=== PATIENT | female | born 1975 | race Caucasian/White ===

== ENCOUNTER → 2018-01-19 | Outpatient (CLI) | payer OTHER ==
[~2018-01-19] VITALS: Ht 162.6 cm; Wt 58.5 kg
[~2018-01-19] MED LIST: ACETAMINOPHEN-1 EAC1 PO; CYMBALTA60 MG PO; GRALISE600 MG PO; MOBIC15 MG PO; NORTRIPTYLINE H10 M1 PO; PERCOCET 7.5-31 EACH PO; PREDNISONE 20 M20 MG PO
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
[2018-01-19 14:33] VITALS: BP 103/69
== END | disposition home or self-care (01) ==
LOC: PAIN 12:47
DX: M54.16 Radiculopathy, lumbar region (principal); Z91.041 Radiographic dye allergy status; Z98.890 Other specified postprocedural states; Z79.891 Long term (current) use of opiate analgesic; Z87.891 Personal history of nicotine dependence; Z88.8 Allergy status to other drugs, medicaments and biological substances; Z79.899 Other long term (current) drug therapy; Z96.652 Presence of left artificial knee joint

== ENCOUNTER → 2018-06-01 | Outpatient (CLI) | payer OTHER ==
[~2018-06-01] VITALS: Ht 162.6 cm; Wt 60.0 kg
--- NOTE | ~2018-06-01 | HPC ---
[address] [place] [address] PAIN MANAGEMENT CONSULTATION Name: DANA ONOFRE Room #: REG [facility].#: [id number] Admission: 06/01/18 Attend Phys: Jah Lovelace MD Discharge: Date of : 73 Report #: [id number] THIS REPORT FOR: //name// CC: Dk Sotelo MD Physician staff Jah Lovelace DATE OF SERVICE: 06/01/2018 REASON FOR VISIT: Followup visit for lumbar radiculopathy in the L3-L4 distribution. HISTORY OF PRESENT ILLNESS: The patient returns to the pain clinic today for a bilateral transforaminal epidural injection. Her favorable response to her initial injection was performed in January and it has been noted in her visit last week. We sought preauthorization for the bilateral injections today and have received it. We will go forward with the injection today under fluoroscopic guidance. IMPRESSION: Bilateral lumbar radiculopathy. Left lateral disk protrusion at L2-L3 causing lateral recess stenosis and the left posterior disk bulge at L3-L4 causing lateral recess stenosis. PROCEDURE: Epidural steroid injection under fluoroscopic guidance, transforaminal approach, bilateral. DESCRIPTION OF PROCEDURE: She was taken to fluoroscopic suite, placed prone, skin prepped with ChloraPrep and skin anesthetized first on the left. A 22-gauge Tuohy epidural needle was gently advanced into the neural foramen at L3-L4. There was no blood and no CSF aspirated. Due to severe allergy to IODINE, we have once again elected not to inject iodine prior to injecting our local anesthetic, triamcinolone mixture. She had some discomfort during needle placement. I carefully repositioned the needle so that there was no paresthesia or discomfort. I gently injected 1 mL of 1% lidocaine followed by 3 mL of 1% lidocaine and 40 mg of triamcinolone. She tolerated the procedure on the left with some discomfort . We then moved to the right. I anesthetized the skin with 1% lidocaine. She did note that she was very hyperalgesic and even a small amount of local anesthetic injected in the skin caused a quite a bit of reaction from her. I injected below the skin with subcutaneous injection of 1% lidocaine and we waited at least 90 seconds before proceeding with a placement of the second Tuohy epidural needle at L3-L4. Needle was advanced into the neural foramen with less discomfort. AP and lateral views confirmed good placement within the neural foramen and I gently injected another 3 mL of 1% [facility] [address] [place] [address] PAIN MANAGEMENT CONSULTATION Name: DANA ONOFRE Room #: REG [facility]#: [id number] Admission: 06/01/18 Attend Phys: Jah Lovelace MD Discharge: Date of : 73 Report #: [id number] lidocaine mixed with 40 mg of triamcinolone. She tolerated the procedure well and was taken to the Recovery Room. Because of the additional 1% lidocaine that was injected during the procedure, her legs were a little bit heavy towards the end and she was kept for nearly an hour and discharged with her . She will be cautious in her movements until local anesthetic is fully resolved. A followup visit planned as needed. No medications were ordered. By: [id number] Jah Lovelace MD /nt
[2018-06-01 14:57] VITALS: BP 105/63
== END | disposition home or self-care (01) ==
LOC: PAIN 07:32
DX: M51.16 Intervertebral disc disorders with radiculopathy, lumbar region (principal); M48.061 Spinal stenosis, lumbar region without neurogenic claudication; Z87.891 Personal history of nicotine dependence; Z98.890 Other specified postprocedural states; Z91.041 Radiographic dye allergy status; Z88.8 Allergy status to other drugs, medicaments and biological substances; Z79.899 Other long term (current) drug therapy

== ENCOUNTER → 2018-09-08 | Outpatient (CLI) | payer OTHER ==
[~2018-09-08] VITALS: Ht 162.6 cm; Wt 63.4 kg
[~2018-09-08] MED LIST changes: +NORCO 5-325 TA1 EACH PO
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
[2018-09-08 13:04] VITALS: BP 125/75
== END ==
LOC: PAIN 08:36
DX: M54.5 Low back pain (principal); M79.652 Pain in left thigh; Z72.89 Other problems related to lifestyle; Z87.891 Personal history of nicotine dependence

== ENCOUNTER → 2018-09-15 | Outpatient (CLI) | payer OTHER ==
[~2018-09-15] VITALS: Ht 162.6 cm; Wt 63.3 kg
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
[2018-09-15 08:41] VITALS: BP 114/75
== END | disposition home or self-care (01) ==
LOC: PAIN 05:40
DX: M54.16 Radiculopathy, lumbar region (principal); G89.29 Other chronic pain; Z98.890 Other specified postprocedural states; Z91.041 Radiographic dye allergy status; Z79.899 Other long term (current) drug therapy; Z87.891 Personal history of nicotine dependence

== ENCOUNTER → 2020-07-03 | Outpatient (CLI) | payer OTHER ==
[~2020-07-03] VITALS: Ht 162.6 cm; Wt 68.0 kg
[~2020-07-03] MED LIST changes: +DIAZEPAM 5 MG5 M1 PO
[2020-07-03 09:21] VITALS: BP 109/74
--- NOTE | 2020-07-03 09:37 | NUR ---
Pain Clinic Assessment: 1. History of Osteoarthritis: Left Lower Extremity History of Rheumatoid Arthritis: Not Applicable 2. Height: 5 ft. 4 in. 162.6 cm. Weight: 150.0 lb. oz. 68.040 kg. Patient's BMI: 25.7 3. Vital Signs: BP: 109/74 Pulse: 79 Resp: 14 Temp: 02 Sat: 100 ECG Mon: 4. Pain Intensity: 4 5. Fall Risk: Dizziness: N Needs help standing or walking: Y Fallen in the last 3 months: Y Fall risk comments: 6. Patient on Blood Thinner: None 7. History of Hypertension: N 8. Opioid Therapy greater than 6 weeks: N Opiate Contract Signed: 9. Risk Assessment Tool Provided: LOW RISK 10. Functional Assessment Tool: 65/70 11. Recreational Drug Use: Never Drug Type: Tobacco Use: Former Smoker Tobacco Type: Amount or Packs/day: How Many Years: Alcohol Use: Yes Frequency: Special Occasions Quant: NOT EVERY DAY
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
== END ==
LOC: PAIN 06:53
PROVIDERS: ATTEND Anesthesiology Pain Medicine
DX: M54.12 Radiculopathy, cervical region (principal); M43.22 Fusion of spine, cervical region; M96.1 Postlaminectomy syndrome, not elsewhere classified; G89.29 Other chronic pain; Z79.899 Other long term (current) drug therapy; Z88.8 Allergy status to other drugs, medicaments and biological substances

== ENCOUNTER → 2020-07-10 | Outpatient (CLI) | payer OTHER ==
[~2020-07-10] VITALS: Ht 162.6 cm; Wt 70.8 kg
--- NOTE | ~2020-07-10 | HPC ---
[facility] [place] [address] PAIN MANAGEMENT CONSULTATION Name: DANA ONOFRE [id number] Admission: 07/10/20 Attend Phys: Jah Lovelace MD Discharge: Date of : 73 Report #: [id number] THIS REPORT FOR: cc: KAROLINA WEEMS MD Physician not on staff Jah Lovelace MD ~ CC: KAROLINA WEEMS Physician staff Jah Lovelace DATE OF SERVICE: 07/10/2020 Followup visit for cervical epidural injection. The patient was seen in consultation 1 week ago and is here today for her cervicothoracic epidural. We discussed a C7-T1 injection, but also a T1-T2 injection. After our discussion, she came today anticipating a T1-T2 injection and I think that is appropriate. Much of her symptomatology is across the T1-T2 dermatomal distribution, which showed good coverage up to the area of her scar regardless of C7-T1 or T1-T2. We discussed potential risks and benefits once again, explained the procedure in detail and she is anxious to proceed. We will say that depending on response, we may consider going a bit higher at C7-T1 in her subsequent injection if that is indicated. IMPRESSION: Cervicothoracic radiculopathy post cervical laminectomy, post anterior cervical diskectomy, fusion. PROCEDURE NOTE: After informed consent, she was taken to fluoroscopic suite, placed prone, skin prepped with ChloraPrep. Skin anesthetized over T1-T2. A 20-gauge Tuohy epidural needle was advanced in the epidural space, left paramedian using loss of resistance. There was no blood nor CSF aspirated. Due to her ALLERGY TO DYE, I injected less than 1/8th of 1 mL of Omnipaque to demonstrate an epidurogram and aspirated it from the epidural space. This was then followed by 3 mL of normal saline with 80 mg of triamcinolone and 1 mL of 0.5% lidocaine. I used lidocaine to flush the needle. We limited her local anesthetic exposure in the thoracic epidural space due to concerns of bradycardia and cardioaccelerator fibers. She tolerated the procedure well. She was observed for a short time in recovery room and discharged with a followup visit planned in 1-2 months. By: [id number] Jah Lovelace MD /dillon
[2020-07-10 08:27] VITALS: BP 114/76
--- NOTE | 2020-07-10 08:35 | NUR ---
Pain Clinic Assessment: 1. History of Osteoarthritis: Left Lower Extremity History of Rheumatoid Arthritis: Not Applicable 2. Height: 5 ft. 4 in. 162.6 cm. Weight: 156.0 lb. oz. 70.761 kg. Patient's BMI: 26.8 3. Vital Signs: BP: 114/76 Pulse: 97 Resp: 16 Temp: 02 Sat: 95 ECG Mon: 4. Pain Intensity: 4 5. Fall Risk: Dizziness: N Needs help standing or walking: Y Fallen in the last 3 months: Y Fall risk comments: 6. Patient on Blood Thinner: None 7. History of Hypertension: N 8. Opioid Therapy greater than 6 weeks: N Opiate Contract Signed: 9. Risk Assessment Tool Provided: LOW RISK-1 10. Functional Assessment Tool: 65/70 11. Recreational Drug Use: Never Drug Type: Tobacco Use: Former Smoker Tobacco Type: Amount or Packs/day: How Many Years: Alcohol Use: Yes Frequency: Weekly Quant: 1-2
== END ==
LOC: PAIN 06:55
PROVIDERS: ATTEND Anesthesiology Pain Medicine
DX: M54.12 Radiculopathy, cervical region (principal); M96.1 Postlaminectomy syndrome, not elsewhere classified; M19.90 Unspecified osteoarthritis, unspecified site; Z79.899 Other long term (current) drug therapy; Z87.891 Personal history of nicotine dependence; Z72.89 Other problems related to lifestyle

== ENCOUNTER → 2020-08-26 | Outpatient (CLI) | payer OTHER ==
[~2020-08-26] VITALS: Ht 162.6 cm; Wt 70.8 kg
[2020-08-26 08:47] VITALS: BP 101/64
--- NOTE | 2020-08-26 09:05 | NUR ---
Pain Clinic Assessment: 1. History of Osteoarthritis: Left Lower Extremity History of Rheumatoid Arthritis: DENIES 2. Height: 5 ft. 4 in. 162.6 cm. Weight: 156.0 lb. oz. 70.761 kg. Patient's BMI: 26.8 3. Vital Signs: BP: 101/64 Pulse: 80 Resp: 14 Temp: 02 Sat: 97 ECG Mon: 4. Pain Intensity: 7 5. Fall Risk: Dizziness: N Needs help standing or walking: Y Fallen in the last 3 months: N Fall risk comments: 6. Patient on Blood Thinner: None 7. History of Hypertension: N 8. Opioid Therapy greater than 6 weeks: N Opiate Contract Signed: 9. Risk Assessment Tool Provided: LOW RISK-1 10. Functional Assessment Tool: 65/70 11. Recreational Drug Use: Never Drug Type: Tobacco Use: Never Smoker Tobacco Type: Amount or Packs/day: How Many Years: Alcohol Use: Yes Frequency: Weekly Quant:
== END | disposition home or self-care (01) ==
LOC: PAIN 06:49
PROVIDERS: ATTEND Anesthesiology Pain Medicine
DX: Z45.1 Encounter for adjustment and management of infusion pump (principal); R25.2 Cramp and spasm; M54.12 Radiculopathy, cervical region; G89.4 Chronic pain syndrome; Z98.890 Other specified postprocedural states; Z79.899 Other long term (current) drug therapy; Z91.041 Radiographic dye allergy status; Z88.8 Allergy status to other drugs, medicaments and biological substances

== ENCOUNTER → 2020-11-20 | Outpatient (CLI) | payer OTHER ==
[~2020-11-20] VITALS: Ht 162.6 cm; Wt 66.6 kg
[~2020-11-20] MED LIST changes: +GRALISE300 MG PO
[2020-11-20 12:47] VITALS: BP 109/70
--- NOTE | 2020-11-20 13:12 | NUR ---
Pain Clinic Assessment: 1. History of Osteoarthritis: Left Lower Extremity History of Rheumatoid Arthritis: DENIES 2. Height: 5 ft. 4 in. 162.6 cm. Weight: 146.8 lb. oz. 66.588 kg. Patient's BMI: 25.2 3. Vital Signs: BP: 109/70 Pulse: 82 Resp: 20 Temp: 02 Sat: 96 ECG Mon: 4. Pain Intensity: 5 5. Fall Risk: Dizziness: N Needs help standing or walking: Y Fallen in the last 3 months: Y Fall risk comments: 6. Patient on Blood Thinner: None 7. History of Hypertension: N 8. Opioid Therapy greater than 6 weeks: Y Opiate Contract Signed: 9. Risk Assessment Tool Provided: LOW RISK-1 10. Functional Assessment Tool: 65/70 11. Recreational Drug Use: Never Drug Type: Tobacco Use: Never Smoker Tobacco Type: Amount or Packs/day: How Many Years: Alcohol Use: Yes Frequency: Weekly Quant: 2
== END ==
LOC: PAIN 06:56
PROVIDERS: ATTEND Anesthesiology Pain Medicine
DX: M54.2 Cervicalgia (principal); G82.50 Quadriplegia, unspecified; M96.1 Postlaminectomy syndrome, not elsewhere classified; G89.4 Chronic pain syndrome; F32.9 Major depressive disorder, single episode, unspecified; F11.20 Opioid dependence, uncomplicated

== ENCOUNTER → 2020-11-27 | Outpatient (CLI) | payer OTHER ==
[~2020-11-27] VITALS: Ht 162.6 cm; Wt 66.2 kg
[2020-11-27 10:14] VITALS: BP 100/70
--- NOTE | 2020-11-27 10:36 | NUR ---
Pain Clinic Assessment: 1. History of Osteoarthritis: Left Lower Extremity History of Rheumatoid Arthritis: DENIES 2. Height: 5 ft. 4 in. 162.6 cm. Weight: 146.0 lb. oz. 66.225 kg. Patient's BMI: 25.0 3. Vital Signs: BP: 100/70 Pulse: 77 Resp: 16 Temp: 02 Sat: 97 ECG Mon: 4. Pain Intensity: 7 5. Fall Risk: Dizziness: N Needs help standing or walking: Y Fallen in the last 3 months: N Fall risk comments: 6. Patient on Blood Thinner: None 7. History of Hypertension: N 8. Opioid Therapy greater than 6 weeks: Y Opiate Contract Signed: 9. Risk Assessment Tool Provided: LOW RISK-1 10. Functional Assessment Tool: 65/70 11. Recreational Drug Use: Never Drug Type: Tobacco Use: Never Smoker Tobacco Type: Amount or Packs/day: How Many Years: Alcohol Use: Yes Frequency: Quant:
== END | disposition home or self-care (01) ==
LOC: PAIN 11-24 07:10
PROVIDERS: ATTEND Anesthesiology Pain Medicine
DX: Z45.1 Encounter for adjustment and management of infusion pump (principal); M54.2 Cervicalgia; G89.29 Other chronic pain; Z98.890 Other specified postprocedural states; Z79.899 Other long term (current) drug therapy; Z91.041 Radiographic dye allergy status

== ENCOUNTER → 2021-01-01 | Outpatient (CLI) | payer OTHER ==
[~2021-01-01] VITALS: Ht 162.6 cm; Wt 66.2 kg
[~2021-01-01] MED LIST changes: +DURAGESIC1 EACH TRANSDERM; +HYDROCODON-ACE1 EAC5 PO
[2021-01-01 13:31] VITALS: BP 108/77
== END ==
LOC: PAIN 12-25 14:11
PROVIDERS: ATTEND Anesthesiology Pain Medicine
DX: G89.4 Chronic pain syndrome (principal); R25.2 Cramp and spasm; M54.13 Radiculopathy, cervicothoracic region; M43.22 Fusion of spine, cervical region; F32.9 Major depressive disorder, single episode, unspecified; F11.20 Opioid dependence, uncomplicated; Z88.8 Allergy status to other drugs, medicaments and biological substances; Z79.899 Other long term (current) drug therapy

== ENCOUNTER → 2021-01-21 | Outpatient (CLI) | payer OTHER ==
[~2021-01-21] VITALS: Ht 162.6 cm; Wt 66.2 kg
[~2021-01-21] MED LIST changes: +DURAGESIC1 EAC4 TOP; +NORCO5 PO
[2021-01-21 08:35] VITALS: BP 105/68
--- NOTE | 2021-01-21 08:40 | NUR ---
Pain Clinic Assessment: 1. History of Osteoarthritis: Left Lower Extremity History of Rheumatoid Arthritis: DENIES 2. Height: 5 ft. 4 in. 162.6 cm. Weight: 146.0 lb. oz. 66.225 kg. Patient's BMI: 25.0 3. Vital Signs: BP: 105/68 Pulse: 64 Resp: 14 Temp: 02 Sat: 99 ECG Mon: 4. Pain Intensity: 9 5. Fall Risk: Dizziness: N Needs help standing or walking: N Fallen in the last 3 months: N Fall risk comments: 6. Patient on Blood Thinner: None 7. History of Hypertension: N 8. Opioid Therapy greater than 6 weeks: Y Opiate Contract Signed: 9. Risk Assessment Tool Provided: LOW RISK-1 10. Functional Assessment Tool: 65/70 11. Recreational Drug Use: Never Drug Type: Tobacco Use: Never Smoker Tobacco Type: Amount or Packs/day: How Many Years: Alcohol Use: Yes Frequency: Quant:
== END | disposition home or self-care (01) ==
LOC: PAIN 01-15 06:46
PROVIDERS: ATTEND Clinical Nurse Specialist Adult Health
DX: Z45.1 Encounter for adjustment and management of infusion pump (principal); G89.4 Chronic pain syndrome; M54.12 Radiculopathy, cervical region; M54.14 Radiculopathy, thoracic region; R25.2 Cramp and spasm; F32.89 Other specified depressive episodes; Z98.890 Other specified postprocedural states; Z79.899 Other long term (current) drug therapy; Z79.891 Long term (current) use of opiate analgesic; Z91.041 Radiographic dye allergy status; Z88.8 Allergy status to other drugs, medicaments and biological substances

== ENCOUNTER → 2021-03-16 | Outpatient (CLI) | payer OTHER ==
[~2021-03-16] MED LIST changes: +DIAZEPAM2 MG PO
[2021-03-16 12:52] VITALS: BP 101/63
--- NOTE | 2021-03-16 13:14 | NUR ---
Pain Clinic Assessment: 1. History of Osteoarthritis: Left Lower Extremity History of Rheumatoid Arthritis: DENIES 2. Height: ft. in. cm. Weight: lb. oz. kg. Patient's BMI: 3. Vital Signs: BP: 101/63 Pulse: 86 Resp: 16 Temp: 02 Sat: 96 ECG Mon: 4. Pain Intensity: 7 W/ACTIVITY 5. Fall Risk: Dizziness: N Needs help standing or walking: N Fallen in the last 3 months: N Fall risk comments: 6. Patient on Blood Thinner: None 7. History of Hypertension: N 8. Opioid Therapy greater than 6 weeks: Y Opiate Contract Signed: 9. Risk Assessment Tool Provided: LOW RISK-1 10. Functional Assessment Tool: 65/70 11. Recreational Drug Use: Never Drug Type: Tobacco Use: Never Smoker Tobacco Type: Amount or Packs/day: How Many Years: Alcohol Use: Yes Frequency: Quant:
== END | disposition home or self-care (01) ==
LOC: PAIN 10:43
PROVIDERS: ATTEND Anesthesiology Pain Medicine
DX: Z45.1 Encounter for adjustment and management of infusion pump (principal); R25.2 Cramp and spasm; G89.29 Other chronic pain; G95.9 Disease of spinal cord, unspecified; M19.90 Unspecified osteoarthritis, unspecified site; Z98.890 Other specified postprocedural states; Z79.899 Other long term (current) drug therapy; Z79.891 Long term (current) use of opiate analgesic; Z91.040 Latex allergy status; Z88.8 Allergy status to other drugs, medicaments and biological substances

== ENCOUNTER → 2021-05-07 | Outpatient (CLI) | payer OTHER ==
[~2021-05-07] VITALS: Ht 162.6 cm; Wt 72.6 kg
[2021-05-07 12:41] VITALS: BP 100/61
--- NOTE | 2021-05-07 12:45 | NUR ---
Pain Clinic Assessment: 1. History of Osteoarthritis: Left Lower Extremity History of Rheumatoid Arthritis: DENIES 2. Height: 5 ft. 4 in. 162.6 cm. Weight: 160.0 lb. oz. 72.576 kg. Patient's BMI: 27.5 3. Vital Signs: BP: 100/61 Pulse: 98 Resp: 16 Temp: 02 Sat: 96 ECG Mon: 4. Pain Intensity: 6 5. Fall Risk: Dizziness: N Needs help standing or walking: N Fallen in the last 3 months: N Fall risk comments: 6. Patient on Blood Thinner: None 7. History of Hypertension: N 8. Opioid Therapy greater than 6 weeks: Y Opiate Contract Signed: 9. Risk Assessment Tool Provided: LOW RISK-1 10. Functional Assessment Tool: 65/70 11. Recreational Drug Use: Never Drug Type: Tobacco Use: Never Smoker Tobacco Type: Amount or Packs/day: How Many Years: Alcohol Use: Yes Frequency: Special Occasions Quant: 1-2
== END | disposition home or self-care (01) ==
LOC: PAIN 07:57
PROVIDERS: ATTEND Anesthesiology Pain Medicine
DX: Z45.1 Encounter for adjustment and management of infusion pump (principal); M54.12 Radiculopathy, cervical region; G89.29 Other chronic pain; R25.2 Cramp and spasm; Z98.890 Other specified postprocedural states; Z79.899 Other long term (current) drug therapy; Z88.8 Allergy status to other drugs, medicaments and biological substances; Z91.041 Radiographic dye allergy status

== ENCOUNTER → 2021-06-29 | Outpatient (CLI) | payer OTHER ==
[~2021-06-29] VITALS: Ht 162.6 cm; Wt 72.6 kg
[~2021-06-29] MED LIST changes: +FENTANYL1 EACH TRANSDERM; +FLEXERIL PO; +LEXAPRO 10 MG T10 M2 PO
[2021-06-29 08:54] VITALS: BP 94/65
== END | disposition home or self-care (01) ==
LOC: PAIN 06:57
PROVIDERS: ATTEND Anesthesiology Pain Medicine
DX: Z45.1 Encounter for adjustment and management of infusion pump (principal); R25.2 Cramp and spasm; G89.29 Other chronic pain; M54.12 Radiculopathy, cervical region; Z98.890 Other specified postprocedural states; Z79.899 Other long term (current) drug therapy; Z79.891 Long term (current) use of opiate analgesic; Z88.8 Allergy status to other drugs, medicaments and biological substances; Z91.041 Radiographic dye allergy status

== ENCOUNTER → 2021-09-28 | Outpatient (CLI) | payer OTHER ==
[~2021-09-28] VITALS: Ht 162.6 cm; Wt 72.6 kg
[~2021-09-28] MED LIST changes: +VALIUM2 MG PO
[2021-09-28 14:32] VITALS: BP 99/62
--- NOTE | 2021-09-28 14:48 | NUR ---
Pain Clinic Assessment: 1. History of Osteoarthritis: Left Lower Extremity History of Rheumatoid Arthritis: DENIES 2. Height: 5 ft. 4 in. 162.6 cm. Weight: 160.0 lb. oz. 72.576 kg. Patient's BMI: 27.5 3. Vital Signs: BP: 99/62 Pulse: 93 Resp: 16 Temp: 02 Sat: 97 ECG Mon: 4. Pain Intensity: 7-8 5. Fall Risk: Dizziness: N Needs help standing or walking: Y Fallen in the last 3 months: N Fall risk comments: 6. Patient on Blood Thinner: None 7. History of Hypertension: N 8. Opioid Therapy greater than 6 weeks: Y Opiate Contract Signed: 9. Risk Assessment Tool Provided: LOW RISK-1 10. Functional Assessment Tool: 65/70 11. Recreational Drug Use: Never Drug Type: Tobacco Use: Never Smoker Tobacco Type: Amount or Packs/day: How Many Years: Alcohol Use: Yes Frequency: Quant:
== END ==
LOC: PAIN 10:45
PROVIDERS: ATTEND Clinical Nurse Specialist Adult Health
DX: G89.29 Other chronic pain (principal); M54.12 Radiculopathy, cervical region; Z88.8 Allergy status to other drugs, medicaments and biological substances; Z79.899 Other long term (current) drug therapy

== ENCOUNTER → 2021-11-16 | Outpatient (CLI) | payer OTHER ==
[~2021-11-16] VITALS: Ht 152.4 cm; Wt 72.6 kg
[2021-11-16 09:59] VITALS: BP 109/73
--- NOTE | 2021-11-16 10:04 | NUR ---
Pain Clinic Assessment: 1. History of Osteoarthritis: Left Lower Extremity History of Rheumatoid Arthritis: DENIES 2. Height: 5 ft. 4 in. 152.4 cm. Weight: 160.0 lb. oz. 72.576 kg. Patient's BMI: 31.2 3. Vital Signs: BP: 109/73 Pulse: 84 Resp: 16 Temp: 02 Sat: 98 ECG Mon: 4. Pain Intensity: 8 5. Fall Risk: Dizziness: N Needs help standing or walking: N Fallen in the last 3 months: Y Fall risk comments: 6. Patient on Blood Thinner: None 7. History of Hypertension: N 8. Opioid Therapy greater than 6 weeks: Y Opiate Contract Signed: 9. Risk Assessment Tool Provided: LOW RISK-1 10. Functional Assessment Tool: 65/70 11. Recreational Drug Use: Never Drug Type: Tobacco Use: Never Smoker Tobacco Type: Amount or Packs/day: How Many Years: Alcohol Use: Yes Frequency: Special Occasions Quant: 1
== END ==
LOC: PAIN 07:04
PROVIDERS: ATTEND Anesthesiology Pain Medicine
DX: G89.29 Other chronic pain (principal); G62.9 Polyneuropathy, unspecified; R25.2 Cramp and spasm; Z79.899 Other long term (current) drug therapy; Z88.8 Allergy status to other drugs, medicaments and biological substances; Z79.891 Long term (current) use of opiate analgesic; Z68.31 Body mass index [BMI] 31.0-31.9, adult; Z72.89 Other problems related to lifestyle

== ENCOUNTER → 2021-11-23 | Outpatient (CLI) | payer OTHER ==
[~2021-11-23] VITALS: Ht 157.5 cm; Wt 72.6 kg
[2021-11-23 14:46] VITALS: BP 109/69
--- NOTE | 2021-11-23 15:00 | NUR ---
Pain Clinic Assessment: 1. History of Osteoarthritis: Left Lower Extremity History of Rheumatoid Arthritis: DENIES 2. Height: 5 ft. 2 in. 157.5 cm. Weight: 160.0 lb. oz. 72.576 kg. Patient's BMI: 29.3 3. Vital Signs: BP: 109/69 Pulse: 93 Resp: 16 Temp: 02 Sat: 97 ECG Mon: 4. Pain Intensity: 7 5. Fall Risk: Dizziness: N Needs help standing or walking: Y Fallen in the last 3 months: N Fall risk comments: 6. Patient on Blood Thinner: None 7. History of Hypertension: N 8. Opioid Therapy greater than 6 weeks: Y Opiate Contract Signed: 9. Risk Assessment Tool Provided: LOW RISK-1 10. Functional Assessment Tool: 65/70 11. Recreational Drug Use: Never Drug Type: Tobacco Use: Never Smoker Tobacco Type: Amount or Packs/day: How Many Years: Alcohol Use: Yes Frequency: Quant:
== END ==
LOC: PAIN 09:24
PROVIDERS: ATTEND Anesthesiology Pain Medicine
DX: R25.2 Cramp and spasm (principal); G89.28 Other chronic postprocedural pain; Z72.89 Other problems related to lifestyle